=== PATIENT | male | born 1970 | race Caucasian/White ===

== ENCOUNTER 2016-10-04 08:59 | Emergency (ER) | payer OTHER ==
[~2016-10-04] VITALS: Ht 170.2 cm; Wt 119.9 kg
[~2016-10-04 08:59] MED LIST: ANUSOL HC,ANUCO25 MG PR; ANUSOL-HC21 GM PR; AZITHROMYCIN250 MG PO; BENTYL10 MG PO; CIPRO500 M1 PO; CIPRO500 MG PO; COUGH SYRU100 MG/5 M PO; DEPAKOTE250 MG PO; DEPAKOTE500 MG PO; FENOFIBRATE200 M1 PO; FENOGLIDE40 MG PO; FLAGYL500 MG PO; GEMFIBROZIL600 MG PO; GENTLE LAXATIVE5 M1 PO; GLUCOPHAGE500 MG PO; KEFLEX500 MG PO; LACTULOSE; LEVOFLOXACIN750 MG PO; LISINOPRIL-HCT1 EAC3 PO; LISINOPRIL20 MG PO; LORATADINE10 M2 PO; MEDROL DOSEPAK4 MG PO; METAMUCIL FIBE3.4 GM PO; METFORMIN HCL1000 MG PO; MOBIC7.5 MG PO; NIACIN 50 MG TA50 MG PO; NORCO 5/3251 TABLET PO; OMEPRAZOLE40 M1 PO; OXYCODONE HCL5 MG PO; OXYCODONE5 MG PO; PEPCID20 MG PO; PERCOCET 5/31 TABLET PO; PRINIVIL10 MG PO; PROBIOTIC & AC1 EACH PO; PROTONIX40 MG PO; PROVENTIL HFA6.7 GM IH; ROBITUSSIN100 MG/5 M PO; SENNA8.6 M1 PO; SIMVASTATIN20 M1 PO; SLO-NIACIN500 MG PO; TAMIFLU75 MG PO; TESSALON PERLE100 MG PO; TOPROL XL50 MG PO; TRAMADOL HCL50 MG PO; TUSSIN DM LIQU118 ML PO; TYLENOL REGULA325 MG PO; VIT D; ZITHROMAX Z-PA250 MG PO; ZOFRAN ODT4 MG PO; ZOFRAN4 MG PO
[2016-10-04 09:53] LABS: EOSINOPHIL COUNT 0.1 K/uL (0-0.3); HEMATOCRIT 42.7 % (38.0-50.0); IMMATURE GRANULOCYTE (%) 1.7 % (0.0-0.7); IMMATURE GRANULOCYTE COUNT 0.1 K/uL; INSTRUMENT ABS NEUTROPHIL CT 2.9 K/uL; LYMPHOCYTE COUNT 2.5 K/uL (1.0-2.8); MCHC 33.5 G/DL (30.0-36.0); MCV 101.4 FL (86-99); MEAN PLAT.VOLUME 9.9 uM^3 (9.0-12.4); MONOCYTE (%) 11.9 % (3-12); MONOCYTE COUNT 0.8 K/uL (0-0.8); NEUTROPHIL (%) 45.5 % (45-76); NEUTROPHIL COUNT 2.9 K/uL (1.8-6.4); NRBC (%) 0.3 /100 WBC (0-0); PLATELET COUNT 201 K/uL (156-360); RBC DIS.WIDTH-CV 14.4 % (11.8-14.6); RBC DIS.WIDTH-SD 53.8 % (39-53); RED BLOOD COUNT 4.21 M/uL (4.00-5.50); WHITE BLOOD COUNT 6.4 K/uL (4.1-10.2)
[2016-10-04 10:01] LABS: CHLORIDE 104 mEq/L (99-109); POTASSIUM 4.5 mEq/L (3.7-5.4); SODIUM 140 mEq/L (136-147)
[2016-10-04 10:03] LABS: GLUCOSE 219 mg/dL (70-99)
[2016-10-04 10:04] LABS: ANION GAP 12 MEQ/L (2-14)
[2016-10-04 10:07] LABS: GFR ESTIMATE (CALCULATED) > 59 mL/min/
[2016-10-04 10:08] LABS: UREA NITROGEN (BUN) 9 mg/dL (9-23)
[2016-10-04 10:09] LABS: URIC ACID 7.6 mg/dL (3.1-9.2)
[2016-10-04 13:04] VITALS: BP 150/95
== END 2016-10-04 13:05 | disposition home or self-care (01) ==
LOC: EME 08:59
PROVIDERS: Emergency Medicine
DX: M79.672 Pain in left foot (principal); E11.9 Type 2 diabetes mellitus without complications; Z79.84 Long term (current) use of oral hypoglycemic drugs; I10 Essential (primary) hypertension; G89.29 Other chronic pain; Z79.891 Long term (current) use of opiate analgesic; F17.200 Nicotine dependence, unspecified, uncomplicated
CPT/HCPCS: 73630; 80048; 84550; 85025; 99281; 99283

== ENCOUNTER 2016-11-03 09:36 | Inpatient (IN) | payer OTHER ==
[~2016-11-03] VITALS: Ht 170.2 cm; Wt 120.1 kg
[~2016-11-03 09:36] MED LIST changes: +ACTOS15 MG PO; +FISH OIL 1,001000 M2 PO; +LOSARTAN POTASS25 MG PO; +VITAMIN D32000 UNI1 PO
[2016-11-03 10:23] LABS: POINT-OF-CARE METER ID UU14174212
[2016-11-03 10:58] VITALS: BP 137/87
[2016-11-03 18:28] LABS: POINT-OF-CARE METER ID UU13113675; POINT-OF-CARE USER ID ADMKMM76
[2016-11-03 21:30] VITALS: BP 162/88
[2016-11-03 23:42] VITALS: BP 129/90
[2016-11-04] VITALS (7 sets, daily range): BP systolic 98–157; BP diastolic 48–80
[2016-11-05 15:44] VITALS: BP 128/78
[2016-11-05 21:00] VITALS: BP 132/78
[2016-11-05 21:14] LABS: EOSINOPHIL (%) 0.3 % (0-5); HEMATOCRIT 36.7 % (38.0-50.0); IMMATURE GRANULOCYTE (%) 0.8 % (0.0-0.7); IMMATURE GRANULOCYTE COUNT 0.1 K/uL; INSTRUMENT ABS NEUTROPHIL CT 5.6 K/uL; LYMPHOCYTE COUNT 0.8 K/uL (1.0-2.8); MCH 34.3 PG (29.0-34.0); MCHC 32.4 G/DL (30.0-36.0); MEAN PLAT.VOLUME 9.9 uM^3 (9.0-12.4); MONOCYTE (%) 13.8 % (3-12); NEUTROPHIL (%) 74.5 % (45-76); NEUTROPHIL COUNT 5.6 K/uL (1.8-6.4); PLATELET COUNT 166 K/uL (156-360); RBC DIS.WIDTH-CV 14.7 % (11.8-14.6); RBC DIS.WIDTH-SD 57.4 % (39-53); RED BLOOD COUNT 3.47 M/uL (4.00-5.50); WHITE BLOOD COUNT 7.5 K/uL (4.1-10.2)
[2016-11-05 21:24] LABS: ANION GAP 7 MEQ/L (2-14); CHLORIDE 104 MEQ/L (99-109); POTASSIUM 5.1 MEQ/L (3.7-5.4); SAMPLE HEMOLYSIS CHECK 0; SAMPLE ICTERIC CHECK 0; SAMPLE LIPEMIA CHECK 0; SODIUM 138 MEQ/L (136-147)
[2016-11-05 21:29] LABS: GFR ESTIMATE (CALCULATED) > 59 mL/min/; GLUCOSE 177 mg/dL (70-99); UREA NITROGEN (BUN) 13 mg/dL (9-23)
[2016-11-05 21:37] LABS: MCV 105.8 FL (86-99)
[2016-11-05 22:26] LABS: D-DIMER ELISA 0.86 mg/L FEU (< 0.57)
[2016-11-06 00:57] VITALS: BP 135/64
[2016-11-06 03:15] LABS: TOTAL BILIRUBIN 0.5 mg/dL (0.0-1.0)
[2016-11-06 03:16] LABS: ALKALINE PHOSPHATASE 33 IU/L (3-129)
[2016-11-06 03:18] LABS: DIRECT BILIRUBIN 0.3 mg/dL (0.0-0.3)
[2016-11-06 03:19] LABS: LIPASE 18 U/L (1.0-51.0)
[2016-11-06 03:25] LABS: TROP-I INTERPRETATION NEGATIVE; TROPONIN-I < 0.01 ng/mL (0.0-0.30)
[2016-11-06 04:09] VITALS: BP 151/71
[2016-11-06 07:09] VITALS: BP 133/72
[2016-11-06 15:23] VITALS: BP 130/71
[2016-11-06 19:43] VITALS: BP 136/74
[2016-11-06 23:33] VITALS: BP 149/89
[2016-11-07 03:44] VITALS: BP 157/75
[2016-11-07 07:01] LABS: ADD MIUA? YES; BILIRUBIN NEGATIVE; BLOOD SMALL; GLUCOSE (STRIP) 50; KETONES 5; LEUKOCYTES NEGATIVE; NITRITE NEGATIVE; PROTEIN (STRIP) NEGATIVE; SPECIFIC GRAVITY 1.008 (1.000-1.030)
[2016-11-07 07:11] LABS: COLOR YELLOW ((YELLOW))
[2016-11-07 07:13] LABS: BACTERIA NONE SEEN /HPF; EPITHELIAL CELLS NONE SEEN /HPF; MUCUS TRACE /LPF; RED BLOOD CELLS 0-5 /HPF (0-5); WHITE BLOOD CELLS 0-5 /HPF (0-5)
[2016-11-07 08:01] VITALS: BP 139/74
[2016-11-07 12:16] VITALS: BP 142/71
[2016-11-07] MEDS ORDERED: ENDOCET 5-3251 EACH PO ×2 (13:29→16:04)
[2016-11-07] MEDS ORDERED: CYCLOBENZAPRINE10 MG PO ×2 (13:29→16:04)
[2016-11-07] MEDS ORDERED: TAMSULOSIN HCL0.4 MG PO ×2 (13:29→16:04)
[2016-11-07] MEDS ORDERED: [UNRECOGNIZED DRUG - SUPPLY] MC (13:30)
[2016-11-07 16:09] VITALS: BP 148/78
== END 2016-11-07 18:00 | disposition home or self-care (01) | DRG 460 ==
LOC: 3EAST 09:36 → 2SOUTH 09:36 → EDSTATUS 13:49 → 2SOUTH 13:50 → SDC 15:42 → 2SOUTH 18:51 → 3EAST 21:05
PROVIDERS: Hospitalist; Neurological Surgery
DX: M43.06 Spondylolysis, lumbar region (principal); Z68.41 Body mass index [BMI] 40.0-44.9, adult; R33.9 Retention of urine, unspecified; G47.33 Obstructive sleep apnea (adult) (pediatric); E66.01 Morbid (severe) obesity due to excess calories; I10 Essential (primary) hypertension; E11.9 Type 2 diabetes mellitus without complications; E78.5 Hyperlipidemia, unspecified; G40.909 Epilepsy, unspecified, not intractable, without status epilepticus; R29.2 Abnormal reflex; R00.0 Tachycardia, unspecified; J45.909 Unspecified asthma, uncomplicated; M06.9 Rheumatoid arthritis, unspecified; E78.00 Pure hypercholesterolemia, unspecified; I25.10 Atherosclerotic heart disease of native coronary artery without angina pectoris; Z95.5 Presence of coronary angioplasty implant and graft; Z88.0 Allergy status to penicillin; Z99.89 Dependence on other enabling machines and devices; Z88.1 Allergy status to other antibiotic agents; Z87.11 Personal history of peptic ulcer disease; Z79.84 Long term (current) use of oral hypoglycemic drugs; Z88.6 Allergy status to analgesic agent; Z83.3 Family history of diabetes mellitus; Z82.3 Family history of stroke; Z82.49 Family history of ischemic heart disease and other diseases of the circulatory system
CPT/HCPCS: 71010; 71275; 72100; 76000; 80048; 80076; 81003; 82948; 83690; 83880; 84443; 84484; 85025; 85379; 86900; 86901; 93005; 93970; 94660; 94760; 94799; 95886; 95938; 97530 GP; C1713; G0378; J0131; J1100; J1170; J2250; J2405; J2550; J2765; J3010; J3480; J7030; J7040; Q0169; S0020

== ENCOUNTER 2016-11-09 14:30 | Emergency (ER) | payer OTHER ==
[~2016-11-09] VITALS: Ht 170.2 cm; Wt 120.0 kg
[~2016-11-09 14:30] MED LIST changes: +CYCLOBENZAPRINE10 MG PO; +ENDOCET 5-3251 EACH PO; +TAMSULOSIN HCL0.4 MG PO; +[UNRECOGNIZED DRUG - SUPPLY] MC
[2016-11-09] MEDS ORDERED: FLOMAX0.4 MG PO (14:59)
[2016-11-09 15:49] LABS: ADD MIUA? YES; BILIRUBIN NEGATIVE; BLOOD LARGE; COLOR YELLOW ((YELLOW)); GLUCOSE (STRIP) >=500; KETONES 5; LEUKOCYTES NEGATIVE; NITRITE NEGATIVE; PROTEIN (STRIP) 100; SPECIFIC GRAVITY 1.017 (1.000-1.030); UROBILINOGEN 0.2 MG/DL (0.2-1.0)
[2016-11-09 15:56] LABS: BACTERIA NONE SEEN /HPF; EPITHELIAL CELLS RARE /HPF; MUCUS TRACE /LPF; RED BLOOD CELLS TNTC /HPF (0-5); UCUL ADDED? NO; WHITE BLOOD CELLS 0-5 /HPF (0-5)
[2016-11-09 18:30] VITALS: BP 144/77
== END 2016-11-09 18:38 | disposition home or self-care (01) ==
LOC: EME 14:30
PROVIDERS: Physician Assistant Medical
DX: M54.9 Dorsalgia, unspecified (principal); R31.9 Hematuria, unspecified; R30.0 Dysuria; Z46.6 Encounter for fitting and adjustment of urinary device; Z98.890 Other specified postprocedural states; Z98.1 Arthrodesis status; E78.5 Hyperlipidemia, unspecified; G40.909 Epilepsy, unspecified, not intractable, without status epilepticus; Z88.6 Allergy status to analgesic agent; Z88.0 Allergy status to penicillin; Z87.891 Personal history of nicotine dependence
CPT/HCPCS: 81003; 99281; 99284

== ENCOUNTER 2017-01-01 13:49 | Inpatient (IN) | payer OTHER ==
[~2017-01-01] VITALS: Ht 170.2 cm; Wt 114.4 kg
[~2017-01-01 13:49] MED LIST changes: +FLOMAX0.4 MG PO
[2017-01-01 14:57] LABS: HEMATOCRIT 43.4 % (38.0-50.0); MCH 33.6 PG (29.0-34.0); MCHC 33.6 G/DL (30.0-36.0); MCV 99.8 FL (86-99); MEAN PLAT.VOLUME 10.6 uM^3 (9.0-12.4); PLATELET COUNT 169 K/uL (156-360); RBC DIS.WIDTH-CV 13.7 % (11.8-14.6); RBC DIS.WIDTH-SD 49.9 % (39-53); RED BLOOD COUNT 4.35 M/uL (4.00-5.50); WHITE BLOOD COUNT 3.4 K/uL (4.1-10.2)
[2017-01-01 15:08] LABS: CHLORIDE 106 mEq/L (99-109); POTASSIUM 4.5 mEq/L (3.7-5.4); SODIUM 140 mEq/L (136-147)
[2017-01-01 15:10] LABS: GLUCOSE 153 mg/dL (70-99)
[2017-01-01 15:11] LABS: ANION GAP 10 MEQ/L (2-14)
[2017-01-01 15:14] LABS: GFR ESTIMATE (CALCULATED) > 59 mL/min/; UREA NITROGEN (BUN) 7 mg/dL (9-23)
[2017-01-01 17:09] LABS: ADD MIUA? NO; BILIRUBIN NEGATIVE; BLOOD NEGATIVE; COLOR YELLOW ((YELLOW)); GLUCOSE (STRIP) 50; KETONES 5; LEUKOCYTES NEGATIVE; NITRITE NEGATIVE; PROTEIN (STRIP) NEGATIVE; SPECIFIC GRAVITY 1.011 (1.000-1.030); UCUL ADDED? NO; UROBILINOGEN 0.2 MG/DL (0.2-1.0)
[2017-01-01 18:34] LABS: SERUM ETHYL ALCOHOL < 10 mg/dL
[2017-01-01] MEDS ORDERED: OMEPRAZOLE40 M1 PO (19:13)
[2017-01-01] MEDS ORDERED: GEMFIBROZIL600 MG PO (19:13)
[2017-01-01] MEDS ORDERED: COZAAR25 MG PO (19:13)
[2017-01-01] MEDS ORDERED: ACTOS15 MG PO (19:13)
[2017-01-01] MEDS ORDERED: CLARITIN,ALAVAR10 MG PO (19:13)
[2017-01-01] MEDS ORDERED: FISH OIL 1,0001 EAC7 PO (19:13)
[2017-01-01] MEDS ORDERED: VITAMIN D32000 UNI1 PO (19:13)
[2017-01-01] MEDS ORDERED: DEPAKOTE250 MG PO (19:14)
[2017-01-01] MEDS ORDERED: GLUCOPHAGE500 MG PO (19:14)
[2017-01-01] MEDS ORDERED: DEPAKOTE500 MG PO (19:14)
[2017-01-01 19:53] LABS: AMPHETAMINE NEGATIVE (500 ng/mL); BARBITURATES NEGATIVE (200 ng/mL); BENZODIAZEPINES NEGATIVE (150 ng/mL); COCAINE NEGATIVE (150 ng/mL); INTERNAL CONTROLS VALID? YES; METHADONE NEGATIVE (200 ng/mL); METHAMPHETAMINE NEGATIVE (500 ng/mL); OPIATES (MORPHINE) NEGATIVE (100 ng/mL); OXYCODONE NEGATIVE (100 ng/mL); PHENCYCLIDINE NEGATIVE (25 ng/mL); PROPOXYPHENE NEGATIVE (300 ng/mL); THC CANNABINOIDS NEGATIVE (50 ng/mL); TRICYCLIC ANTIDEPRESSANTS PRESUMPTIVE POSITIVE (300 ng/mL)
[2017-01-01 20:23] LABS: POINT-OF-CARE METER ID UU14100415
[2017-01-01 22:10] LABS: BASE EXCESS -0.2 mEq/L (-3 to +3); BICARBONATE 24.8 mEq/L (22-26); CARBOXY HGB 1.4 % (0-5); METHEMOGLOBIN 0.6 % (0-1.5); PCO2 41 mm Hg (35-45); PO2 68 mm Hg (80-100); pH 7.39 (7.35-7.45)
[2017-01-01 22:11] LABS: COMMENTS - BLOOD GASES C+; DEVICE RA; MECHANICAL RATE 16 resp/min; SITE LR
[2017-01-01 22:55] LABS: TOTAL BILIRUBIN 0.4 mg/dL (0.0-1.0)
[2017-01-01 22:56] LABS: ALKALINE PHOSPHATASE 107 IU/L (3-129)
[2017-01-01 22:59] LABS: DIRECT BILIRUBIN 0.2 mg/dL (0.0-0.3)
[2017-01-01 23:46] VITALS: BP 141/73
[2017-01-01 23:59] LABS: POINT-OF-CARE METER ID UU14174225
[2017-01-02 02:00] LABS: HDL CHOLESTEROL 38 MG/DL (Desirable>=40); LDL CHOLESTEROL 116 mg/dL (Desirable<100); NON-HDL CHOLESTEROL 134 mg/dL (Desirable<160); TOTAL CHOLESTEROL 172 mg/dL (Desirable<200); TRIGLYCERIDES 89 MG/DL (Normal: <150)
[2017-01-02 03:48] VITALS: BP 158/85
[2017-01-02 06:42] LABS: HEMATOCRIT 40.9 % (38.0-50.0); MCH 34.6 PG (29.0-34.0); MCHC 33.7 G/DL (30.0-36.0); MCV 102.5 FL (86-99); MEAN PLAT.VOLUME 10.8 uM^3 (9.0-12.4); PLATELET COUNT 165 K/uL (156-360); RBC DIS.WIDTH-CV 14.3 % (11.8-14.6); RBC DIS.WIDTH-SD 53.8 % (39-53); RED BLOOD COUNT 3.99 M/uL (4.00-5.50); WHITE BLOOD COUNT 2.9 K/uL (4.1-10.2)
[2017-01-02 07:57] VITALS: BP 141/84
[2017-01-02 07:58] LABS: POINT-OF-CARE METER ID UU14188625
[2017-01-02 11:11] VITALS: BP 152/85
[2017-01-02 11:58] LABS: POINT-OF-CARE METER ID UU14188625
[2017-01-02 15:21] VITALS: BP 141/82
[2017-01-02 19:34] VITALS: BP 138/80
[2017-01-02 21:12] LABS: POINT-OF-CARE METER ID UU13113717
[2017-01-02 23:39] VITALS: BP 126/88
[2017-01-03 03:30] VITALS: BP 123/69
[2017-01-03 06:03] LABS: EOSINOPHIL (%) 2.4 % (0-5); EOSINOPHIL COUNT 0.1 K/uL (0-0.3); HEMATOCRIT 35.6 % (38.0-50.0); IMMATURE GRANULOCYTE (%) 0.8 % (0.0-0.7); INSTRUMENT ABS NEUTROPHIL CT 1.3 K/uL; LYMPHOCYTE COUNT 1.9 K/uL (1.0-2.8); MCH 34.9 PG (29.0-34.0); MCHC 34.3 G/DL (30.0-36.0); MCV 101.7 FL (86-99); MEAN PLAT.VOLUME 10.4 uM^3 (9.0-12.4); MONOCYTE (%) 13.1 % (3-12); MONOCYTE COUNT 0.5 K/uL (0-0.8); NEUTROPHIL (%) 32.9 % (45-76); NEUTROPHIL COUNT 1.3 K/uL (1.8-6.4); PLATELET COUNT 147 K/uL (156-360); RBC DIS.WIDTH-CV 14.1 % (11.8-14.6); RBC DIS.WIDTH-SD 52.6 % (39-53); WHITE BLOOD COUNT 3.8 K/uL (4.1-10.2)
[2017-01-03 06:31] LABS: ALKALINE PHOSPHATASE 85 IU/L (3-129); ANION GAP 8 MEQ/L (2-14); CHLORIDE 106 MEQ/L (99-109); GFR ESTIMATE (CALCULATED) > 59 mL/min/; GLUCOSE 163 mg/dL (70-99); POTASSIUM 4.1 MEQ/L (3.7-5.4); SAMPLE HEMOLYSIS CHECK 0; SAMPLE ICTERIC CHECK 0; SAMPLE LIPEMIA CHECK 0; SODIUM 140 MEQ/L (136-147); TOTAL BILIRUBIN 0.4 MG/DL (0.0-1.0); UREA NITROGEN (BUN) 15 mg/dL (9-23)
[2017-01-03 08:21] VITALS: BP 113/56
[2017-01-03 11:00] VITALS: BP 123/73
[2017-01-03 12:16] LABS: POINT-OF-CARE METER ID UU13113717
[2017-01-03] MEDS ORDERED: LEVETIRACETAM750 MG PO (15:21)
[2017-01-04 07:39] LABS: Estimated Average Glucose 126 mg/dL (70-123)
== END 2017-01-03 16:38 | disposition home or self-care (01) | DRG 71 ==
LOC: EME 13:49 → 5SOUTH 21:43 → EDOF 21:43 → ENRESERV 21:44 → 5SOUTH 23:22
PROVIDERS: Emergency Medicine; Hospitalist; Internal Medicine
DX: G93.41 Metabolic encephalopathy (principal); E72.20 Disorder of urea cycle metabolism, unspecified; R27.8 Other lack of coordination; E11.9 Type 2 diabetes mellitus without complications; E78.5 Hyperlipidemia, unspecified; I10 Essential (primary) hypertension; J45.909 Unspecified asthma, uncomplicated; G40.909 Epilepsy, unspecified, not intractable, without status epilepticus; G89.29 Other chronic pain; M54.9 Dorsalgia, unspecified; T42.6X5A Adverse effect of other antiepileptic and sedative-hypnotic drugs, initial encounter; E66.9 Obesity, unspecified; Z68.39 Body mass index [BMI] 39.0-39.9, adult; R53.1 Weakness; Z87.891 Personal history of nicotine dependence; R47.81 Slurred speech; Z79.899 Other long term (current) drug therapy; Z87.11 Personal history of peptic ulcer disease
CPT/HCPCS: 36600; 70450; 70551; 80048; 80053; 80061; 80076; 80164; 81003; 82140; 82803; 82948; 83036; 85025; 85027; 92523 GN; 93005; 93880; 99281; 99285; G0480; J1650; J1815; J7030

== ENCOUNTER 2017-02-11 18:06 | Emergency (ER) | payer OTHER ==
[~2017-02-11] VITALS: Ht 170.2 cm; Wt 113.0 kg
[~2017-02-11 18:06] MED LIST changes: +CLARITIN,ALAVAR10 MG PO; +COZAAR25 MG PO; +FISH OIL 1,0001 EAC7 PO; +LEVETIRACETAM750 MG PO
[2017-02-11 18:21] VITALS: BP 155/90
[2017-02-11] MEDS ORDERED: PEPCID20 MG PO (18:44)
[2017-02-11] MEDS ORDERED: BENADRYL25 MG PO (18:44)
== END 2017-02-11 19:32 | disposition home or self-care (01) ==
LOC: EME 18:06
DX: L25.9 Unspecified contact dermatitis, unspecified cause (principal); E11.9 Type 2 diabetes mellitus without complications; I10 Essential (primary) hypertension; E78.00 Pure hypercholesterolemia, unspecified; R56.9 Unspecified convulsions; Z88.0 Allergy status to penicillin; Z88.8 Allergy status to other drugs, medicaments and biological substances; Z79.84 Long term (current) use of oral hypoglycemic drugs
CPT/HCPCS: 99281; 99284

== ENCOUNTER 2017-04-29 12:48 | Emergency (ER) | payer OTHER ==
[~2017-04-29] VITALS: Ht 170.2 cm; Wt 108.7 kg
[~2017-04-29 12:48] MED LIST changes: +BENADRYL25 MG PO
[2017-04-29] MEDS ORDERED: ATARAX,VISTARIL25 MG PO (15:46)
[2017-04-29] MEDS ORDERED: MEDROL DOSEPAK4 MG PO (15:46)
[2017-04-29 16:00] VITALS: BP 124/80
== END 2017-04-29 16:11 | disposition home or self-care (01) ==
LOC: EME 12:48
DX: L24.0 Irritant contact dermatitis due to detergents (principal); Z88.5 Allergy status to narcotic agent; Z88.0 Allergy status to penicillin
CPT/HCPCS: 99281; 99283

== ENCOUNTER 2017-05-16 08:38 | Emergency (ER) | payer OTHER ==
[~2017-05-16] VITALS: Ht 170.2 cm; Wt 106.3 kg
[~2017-05-16 08:38] MED LIST changes: +ATARAX,VISTARIL25 MG PO
[2017-05-16] MEDS ORDERED: IMODIUM A-D2 M2 PO (12:15)
[2017-05-16] MEDS ORDERED: ZOFRAN4 MG PO (12:15)
[2017-05-16 13:13] VITALS: BP 138/85
== END 2017-05-16 13:14 | disposition home or self-care (01) ==
LOC: EME 08:38
PROVIDERS: Emergency Medicine
DX: R53.1 Weakness (principal); R19.7 Diarrhea, unspecified; R11.0 Nausea; I10 Essential (primary) hypertension; E11.9 Type 2 diabetes mellitus without complications; Z79.84 Long term (current) use of oral hypoglycemic drugs; Z86.73 Personal history of transient ischemic attack (TIA), and cerebral infarction without residual deficits; Z87.891 Personal history of nicotine dependence
CPT/HCPCS: 82948; 99281; 99283

== ENCOUNTER 2017-08-06 21:19 | Observation (INO) | payer OTHER ==
[~2017-08-06] VITALS: Ht 170.2 cm; Wt 110.8 kg
[~2017-08-06 21:19] MED LIST changes: +IMODIUM A-D2 M2 PO
[2017-08-06 22:33] LABS: HEMATOCRIT 38.6 % (38.0-50.0); MCH 31.8 PG (29.0-34.0); MCHC 33.7 G/DL (30.0-36.0); MCV 94.4 FL (86-99); PLATELET COUNT 245 K/uL (156-360); RBC DIS.WIDTH-SD 47.8 % (39-53); RED BLOOD COUNT 4.09 M/uL (4.00-5.50); WHITE BLOOD COUNT 5.4 K/uL (4.1-10.2)
[2017-08-06 22:45] LABS: CHLORIDE 105 mEq/L (99-109); SODIUM 139 mEq/L (136-147)
[2017-08-06 22:47] LABS: GLUCOSE 121 mg/dL (70-99)
[2017-08-06 22:51] LABS: CREATININE 0.9 mg/dL (0.6-1.3); GFR ESTIMATE (CALCULATED) > 59 mL/min/ (58.99-99999)
[2017-08-06 22:52] LABS: UREA NITROGEN (BUN) 9 mg/dL (9-23)
[2017-08-07] MEDS ORDERED: CETIRIZINE HCL10 M2 PO (00:26)
[2017-08-07] MEDS ORDERED: LOSARTAN POTASS25 MG PO (00:29)
[2017-08-07] MEDS ORDERED: PIOGLITAZONE HC15 MG PO (00:30)
[2017-08-07] MEDS ORDERED: METFORMIN HCL500 MG PO (00:31)
[2017-08-07] MEDS ORDERED: VENTOLIN HFA18 GM IH (00:32)
[2017-08-07] MEDS ORDERED: KEPPRA750 MG PO (00:35)
[2017-08-07] MEDS ORDERED: B-COMPLEX-VITA1 EACH PO (00:49)
[2017-08-07] MEDS ORDERED: ASCORBIC ACID100 MG PO (00:50)
[2017-08-07 00:53] VITALS: BP 136/62
[2017-08-07 00:54] LABS: HDL CHOLESTEROL 46 MG/DL (Desirable>=40); LDL CHOLESTEROL 85 mg/dL (Desirable<100); NON-HDL CHOLESTEROL 109 mg/dL (Desirable<160); TOTAL CHOLESTEROL 155 mg/dL (Desirable<200); TRIGLYCERIDES 120 MG/DL (Normal: <150)
[2017-08-07 03:22] VITALS: BP 127/68
[2017-08-07 07:31] VITALS: BP 116/65
[2017-08-07] MEDS ORDERED: BUTALB-APAP-CA1 EACH PO (10:49)
[2017-08-07 11:05] LABS: HEMOGLOBIN A1c (GLYCOHEMOGLOB) 5.9 % (Below 5.7)
[2017-08-07 11:15] LABS: APPEARANCE CLEAR ((CLEAR)); BILIRUBIN NEGATIVE; BLOOD NEGATIVE; COLOR YELLOW ((YELLOW)); GLUCOSE (STRIP) NEGATIVE; KETONES NEGATIVE; LEUKOCYTES NEGATIVE; NITRITE NEGATIVE; PROTEIN (STRIP) NEGATIVE; SPECIFIC GRAVITY 1.013 (1.000-1.030); UCUL ADDED? NO; UROBILINOGEN 0.2 MG/DL (0.2-1.0)
[2017-08-07 12:19] LABS: C DIFF TOXIN POSITIVE (NEGATIVE)
== END 2017-08-07 12:04 | disposition home or self-care (01) ==
LOC: EME → EDBD 21:19 → EME 21:19 → EDOF 23:50 → 5WEST 23:50 → ENRESERV 23:59 → 5WEST 08-07 00:45 → ENPENDDIS 08-07 10:54 → 5WEST 08-07 12:04
PROVIDERS: Emergency Medicine; Hospitalist; Physician Assistant
DX: G43.909 Migraine, unspecified, not intractable, without status migrainosus (principal); A04.72 Enterocolitis due to Clostridium difficile, not specified as recurrent; E11.9 Type 2 diabetes mellitus without complications; I10 Essential (primary) hypertension; E78.5 Hyperlipidemia, unspecified; J45.909 Unspecified asthma, uncomplicated; G40.909 Epilepsy, unspecified, not intractable, without status epilepticus; R11.0 Nausea; R42 Dizziness and giddiness; Z79.4 Long term (current) use of insulin; Z79.82 Long term (current) use of aspirin; Z82.49 Family history of ischemic heart disease and other diseases of the circulatory system; Z87.11 Personal history of peptic ulcer disease; Z88.0 Allergy status to penicillin; Z88.5 Allergy status to narcotic agent
CPT/HCPCS: 70450; 70551; 80048; 80061; 80164; 81003; 82140; 82948; 83036; 85027; 87493; 87506; 99281; 99285; G0378; J1200; J1650; J2765; J7030

== ENCOUNTER 2017-08-13 01:11 | Emergency (ER) | payer OTHER ==
[~2017-08-13] VITALS: Ht 170.2 cm; Wt 111.4 kg
[~2017-08-13 01:11] MED LIST changes: +ASCORBIC ACID100 MG PO; +B-COMPLEX-VITA1 EACH PO; +BUTALB-APAP-CA1 EACH PO; +CETIRIZINE HCL10 M2 PO; +KEPPRA750 MG PO; +METFORMIN HCL500 MG PO; +PIOGLITAZONE HC15 MG PO; +VENTOLIN HFA18 GM IH
[2017-08-13 02:11] LABS: HEMATOCRIT 39.2 % (38.0-50.0); HEMOGLOBIN 13.4 G/DL (12.5-16.6); MCH 32.1 PG (29.0-34.0); MCHC 34.2 G/DL (30.0-36.0); PLATELET COUNT 276 K/uL (156-360); RBC DIS.WIDTH-CV 13.9 % (11.8-14.6); RBC DIS.WIDTH-SD 47.6 % (39-53); RED BLOOD COUNT 4.17 M/uL (4.00-5.50); WHITE BLOOD COUNT 6.7 K/uL (4.1-10.2)
[2017-08-13 02:21] LABS: ALBUMIN 4.2 g/dL (3.2-4.8); CHLORIDE 105 mEq/L (99-109); POTASSIUM 3.8 mEq/L (3.7-5.4); SODIUM 139 mEq/L (136-147)
[2017-08-13 02:23] LABS: GLUCOSE 93 mg/dL (70-99); TOTAL PROTEIN 6.9 g/dL (6.4-8.3)
[2017-08-13 02:25] LABS: TOTAL BILIRUBIN 0.4 mg/dL (0.0-1.0)
[2017-08-13 02:27] LABS: ALKALINE PHOSPHATASE 57 IU/L (3-129); CREATININE 0.9 mg/dL (0.6-1.3); GFR ESTIMATE (CALCULATED) > 59 mL/min/ (58.99-99999)
[2017-08-13 02:28] LABS: UREA NITROGEN (BUN) 13 mg/dL (9-23)
[2017-08-13 02:29] LABS: AST (GOT) 21 IU/L (2-34)
[2017-08-13 02:30] LABS: ALT (GPT) 20 IU/L (3-49)
[2017-08-13 02:45] LABS: APPEARANCE CLEAR ((CLEAR)); BILIRUBIN NEGATIVE; BLOOD NEGATIVE; COLOR STRAW ((YELLOW)); GLUCOSE (STRIP) NEGATIVE; KETONES NEGATIVE; LEUKOCYTES NEGATIVE; NITRITE NEGATIVE; PROTEIN (STRIP) NEGATIVE; SPECIFIC GRAVITY 1.008 (1.000-1.030); UCUL ADDED? NO; UROBILINOGEN 0.2 MG/DL (0.2-1.0)
[2017-08-13] MEDS ORDERED: ZOFRAN ODT4 MG PO (03:50)
[2017-08-13 03:58] VITALS: BP 118/76
== END 2017-08-13 03:59 | disposition home or self-care (01) ==
LOC: EME 01:11
PROVIDERS: Physician Assistant
DX: A04.72 Enterocolitis due to Clostridium difficile, not specified as recurrent (principal); Z86.73 Personal history of transient ischemic attack (TIA), and cerebral infarction without residual deficits; I10 Essential (primary) hypertension; J45.909 Unspecified asthma, uncomplicated; E11.9 Type 2 diabetes mellitus without complications; Z79.84 Long term (current) use of oral hypoglycemic drugs; Z88.0 Allergy status to penicillin; Z87.891 Personal history of nicotine dependence
CPT/HCPCS: 80053; 81003; 85027; 87493; 99281; 99284

== ENCOUNTER 2017-08-27 18:21 | Emergency (ER) | payer OTHER ==
[~2017-08-27] VITALS: Ht 170.2 cm; Wt 111.7 kg
[2017-08-27 19:16] LABS: APPEARANCE CLEAR ((CLEAR)); BILIRUBIN NEGATIVE; BLOOD NEGATIVE; COLOR YELLOW ((YELLOW)); GLUCOSE (STRIP) NEGATIVE; KETONES NEGATIVE; LEUKOCYTES NEGATIVE; NITRITE NEGATIVE; PROTEIN (STRIP) NEGATIVE; SPECIFIC GRAVITY 1.025 (1.000-1.030); UCUL ADDED? NO; UROBILINOGEN 0.2 MG/DL (0.2-1.0)
[2017-08-27 19:17] LABS: HEMATOCRIT 39.9 % (38.0-50.0); HEMOGLOBIN 13.7 G/DL (12.5-16.6); MCH 32.5 PG (29.0-34.0); MCHC 34.3 G/DL (30.0-36.0); MCV 94.8 FL (86-99); PLATELET COUNT 260 K/uL (156-360); RBC DIS.WIDTH-CV 14.1 % (11.8-14.6); RBC DIS.WIDTH-SD 48.1 % (39-53); RED BLOOD COUNT 4.21 M/uL (4.00-5.50); WHITE BLOOD COUNT 11.1 K/uL (4.1-10.2)
[2017-08-27 19:26] LABS: ALBUMIN 4.4 g/dL (3.2-4.8); CHLORIDE 103 mEq/L (99-109); POTASSIUM 4.2 mEq/L (3.7-5.4); SODIUM 139 mEq/L (136-147)
[2017-08-27 19:28] LABS: GLUCOSE 103 mg/dL (70-99); TOTAL PROTEIN 7.2 g/dL (6.4-8.3)
[2017-08-27 19:30] LABS: TOTAL BILIRUBIN 0.4 mg/dL (0.0-1.0)
[2017-08-27 19:32] LABS: ALKALINE PHOSPHATASE 64 IU/L (3-129); CREATININE 1.1 mg/dL (0.6-1.3); GFR ESTIMATE (CALCULATED) > 59 mL/min/ (58.99-99999)
[2017-08-27 19:33] LABS: UREA NITROGEN (BUN) 10 mg/dL (9-23)
[2017-08-27 19:34] LABS: AST (GOT) 17 IU/L (2-34)
[2017-08-27 19:35] LABS: ALT (GPT) 19 IU/L (3-49); LIPASE 71 U/L (1.0-51.0)
[2017-08-27 21:00] VITALS: BP 152/90
[2017-08-27] MEDS ORDERED: FLAGYL500 MG PO (21:15)
[2017-08-27] MEDS ORDERED: CIPRO500 MG PO (21:15)
[2017-08-27] MEDS ORDERED: NORCO 5/3251 TABLET PO (21:15)
== END 2017-08-27 21:43 | disposition home or self-care (01) ==
LOC: EME 18:21
DX: K57.32 Diverticulitis of large intestine without perforation or abscess without bleeding (principal); I10 Essential (primary) hypertension; E78.5 Hyperlipidemia, unspecified; J45.909 Unspecified asthma, uncomplicated; K21.9 Gastro-esophageal reflux disease without esophagitis; G43.909 Migraine, unspecified, not intractable, without status migrainosus; R56.9 Unspecified convulsions; Z79.84 Long term (current) use of oral hypoglycemic drugs; Z79.51 Long term (current) use of inhaled steroids; Z86.73 Personal history of transient ischemic attack (TIA), and cerebral infarction without residual deficits; Z87.19 Personal history of other diseases of the digestive system; Z87.891 Personal history of nicotine dependence; Z88.5 Allergy status to narcotic agent; Z88.0 Allergy status to penicillin; Z88.1 Allergy status to other antibiotic agents; Z88.6 Allergy status to analgesic agent
CPT/HCPCS: 74177; 80053; 81003; 83690; 85027; 99281; 99285; J3010; J7040

== ENCOUNTER 2017-08-31 21:59 | Emergency (ER) | payer OTHER ==
[~2017-08-31] VITALS: Ht 170.2 cm; Wt 112.7 kg
[2017-08-31 22:35] LABS: HEMATOCRIT 40.4 % (38.0-50.0); HEMOGLOBIN 13.6 G/DL (12.5-16.6); MCHC 33.7 G/DL (30.0-36.0); MCV 95.1 FL (86-99); PLATELET COUNT 285 K/uL (156-360); RBC DIS.WIDTH-CV 13.9 % (11.8-14.6); RBC DIS.WIDTH-SD 48.6 % (39-53); RED BLOOD COUNT 4.25 M/uL (4.00-5.50); WHITE BLOOD COUNT 5.3 K/uL (4.1-10.2)
[2017-08-31 22:43] LABS: ALBUMIN 4.2 g/dL (3.2-4.8); CHLORIDE 106 mEq/L (99-109); POTASSIUM 4.4 mEq/L (3.7-5.4); SODIUM 144 mEq/L (136-147)
[2017-08-31 22:45] LABS: GLUCOSE 139 mg/dL (70-99)
[2017-08-31 22:46] LABS: TOTAL PROTEIN 6.6 g/dL (6.4-8.3)
[2017-08-31 22:49] LABS: ALKALINE PHOSPHATASE 62 IU/L (3-129); CREATININE 0.9 mg/dL (0.6-1.3); GFR ESTIMATE (CALCULATED) > 59 mL/min/ (58.99-99999)
[2017-08-31 22:50] LABS: UREA NITROGEN (BUN) 12 mg/dL (9-23)
[2017-08-31 22:51] LABS: AST (GOT) 20 IU/L (2-34)
[2017-08-31 22:52] LABS: ALT (GPT) 24 IU/L (3-49)
[2017-08-31 22:53] LABS: LIPASE 59 U/L (1.0-51.0)
[2017-08-31 22:54] LABS: TOTAL BILIRUBIN 0.2 mg/dL (0.0-1.0)
[2017-09-01 01:22] VITALS: BP 154/89
[2017-09-01 02:32] LABS: C DIFF TOXIN POSITIVE (NEGATIVE)
[2017-09-02] MEDS ORDERED: KEPPRA1000 MG PO (02:15)
== END 2017-09-01 01:22 | disposition home or self-care (01) ==
LOC: EME 21:59
PROVIDERS: Physician Assistant
DX: R19.7 Diarrhea, unspecified (principal); R11.0 Nausea; E11.9 Type 2 diabetes mellitus without complications; I10 Essential (primary) hypertension; E78.5 Hyperlipidemia, unspecified; K21.9 Gastro-esophageal reflux disease without esophagitis; J45.909 Unspecified asthma, uncomplicated; Z79.84 Long term (current) use of oral hypoglycemic drugs; Z87.891 Personal history of nicotine dependence; Z87.19 Personal history of other diseases of the digestive system; Z86.73 Personal history of transient ischemic attack (TIA), and cerebral infarction without residual deficits; Z88.5 Allergy status to narcotic agent; Z88.0 Allergy status to penicillin; Z88.6 Allergy status to analgesic agent; Z88.1 Allergy status to other antibiotic agents
CPT/HCPCS: 80053; 81003; 83690; 85027; 87493; 99281; 99283

== ENCOUNTER 2017-09-01 22:43 | Emergency (ER) | payer OTHER ==
[~2017-09-01] VITALS: Ht 170.2 cm; Wt 109.0 kg
[2017-09-01 23:16] LABS: HEMATOCRIT 39.9 % (38.0-50.0); HEMOGLOBIN 13.4 G/DL (12.5-16.6); MCH 31.8 PG (29.0-34.0); MCHC 33.6 G/DL (30.0-36.0); MCV 94.5 FL (86-99); PLATELET COUNT 280 K/uL (156-360); RBC DIS.WIDTH-CV 14.1 % (11.8-14.6); RBC DIS.WIDTH-SD 48.5 % (39-53); RED BLOOD COUNT 4.22 M/uL (4.00-5.50); WHITE BLOOD COUNT 6.7 K/uL (4.1-10.2)
[2017-09-01 23:29] LABS: ALBUMIN 4.1 g/dL (3.2-4.8); CHLORIDE 106 mEq/L (99-109); SODIUM 141 mEq/L (136-147)
[2017-09-01 23:32] LABS: GLUCOSE 132 mg/dL (70-99); TOTAL PROTEIN 6.8 g/dL (6.4-8.3)
[2017-09-01 23:35] LABS: ALKALINE PHOSPHATASE 59 IU/L (3-129); GFR ESTIMATE (CALCULATED) > 59 mL/min/ (58.99-99999)
[2017-09-01 23:36] LABS: UREA NITROGEN (BUN) 9 mg/dL (9-23)
[2017-09-01 23:37] LABS: AST (GOT) 22 IU/L (2-34)
[2017-09-01 23:38] LABS: ALT (GPT) 24 IU/L (3-49); CREATINE KINASE 125 IU/L (1-294); TOTAL CK 125 IU/L (1-294)
[2017-09-01 23:39] LABS: POTASSIUM 3.3 mEq/L (3.7-5.4); TOTAL BILIRUBIN 0.3 mg/dL (0.0-1.0)
[2017-09-01 23:46] LABS: CK-MB 1.8 ng/mL (0.0-4.9); CKMB RELATIVE INDEX 1.4 (0.0-3.9)
[2017-09-02 00:36] LABS: TROP-I INTERPRETATION NEGATIVE; TROPONIN-I < 0.01 ng/mL (0.0-0.30)
[2017-09-02] MEDS ORDERED: KEPPRA1000 MG PO (02:15)
[2017-09-02 02:27] VITALS: BP 123/103
== END 2017-09-02 02:28 | disposition home or self-care (01) ==
LOC: EME → EDBD 22:43 → EME 22:43
PROVIDERS: Emergency Medicine
DX: G40.909 Epilepsy, unspecified, not intractable, without status epilepticus (principal); A04.72 Enterocolitis due to Clostridium difficile, not specified as recurrent; I10 Essential (primary) hypertension; K21.9 Gastro-esophageal reflux disease without esophagitis; E78.5 Hyperlipidemia, unspecified; J45.909 Unspecified asthma, uncomplicated; Z87.19 Personal history of other diseases of the digestive system; Z86.73 Personal history of transient ischemic attack (TIA), and cerebral infarction without residual deficits; Z87.891 Personal history of nicotine dependence; Z88.5 Allergy status to narcotic agent; Z88.0 Allergy status to penicillin; Z88.1 Allergy status to other antibiotic agents
CPT/HCPCS: 71045; 80053; 82550; 82553; 84484; 85027; 93005; 99281; 99284; J1953; J7030; J7050

== ENCOUNTER 2017-09-18 10:41 | Emergency (ER) | payer OTHER ==
[~2017-09-18] VITALS: Ht 170.2 cm; Wt 109.3 kg
[~2017-09-18 10:41] MED LIST changes: +KEPPRA1000 MG PO
[2017-09-18 11:31] LABS: BASOPHIL (%) 0.9 % (0-1); BASOPHIL COUNT 0.1 K/uL (0-0.1); EOSINOPHIL (%) 2.6 % (0-5); EOSINOPHIL COUNT 0.2 K/uL (0-0.3); HEMATOCRIT 40.5 % (38.0-50.0); HEMOGLOBIN 13.6 G/DL (12.5-16.6); IMMATURE GRANULOCYTE (%) 0.5 % (0.0-0.7); LYMPHOCYTE (%) 27.9 % (15-42); LYMPHOCYTE COUNT 1.6 K/uL (1.0-2.8); MCH 31.6 PG (29.0-34.0); MCHC 33.6 G/DL (30.0-36.0); MCV 94.2 FL (86-99); MONOCYTE (%) 7.8 % (3-12); MONOCYTE COUNT 0.5 K/uL (0-0.8); NEUTROPHIL (%) 60.3 % (45-76); NEUTROPHIL COUNT 3.5 K/uL (1.8-6.4); PLATELET COUNT 211 K/uL (156-360); RBC DIS.WIDTH-CV 14.2 % (11.8-14.6); RBC DIS.WIDTH-SD 48.6 % (39-53); WHITE BLOOD COUNT 5.8 K/uL (4.1-10.2)
[2017-09-18 12:03] LABS: CHLORIDE 103 MEQ/L (99-109); POTASSIUM 3.9 MEQ/L (3.7-5.4); SODIUM 138 MEQ/L (136-147)
[2017-09-18 12:08] LABS: CREATININE 0.8 MG/DL (0.6-1.3); GFR ESTIMATE (CALCULATED) > 59 mL/min/ (58.99-99999); GLUCOSE 140 mg/dL (70-99); UREA NITROGEN (BUN) 9 mg/dL (9-23)
[2017-09-18 15:10] VITALS: BP 131/90
== END 2017-09-18 15:16 | disposition home or self-care (01) ==
LOC: EME 10:41
PROVIDERS: Emergency Medicine
DX: G40.909 Epilepsy, unspecified, not intractable, without status epilepticus (principal); K21.9 Gastro-esophageal reflux disease without esophagitis; J45.909 Unspecified asthma, uncomplicated; E78.5 Hyperlipidemia, unspecified; I10 Essential (primary) hypertension; Z86.73 Personal history of transient ischemic attack (TIA), and cerebral infarction without residual deficits; E11.9 Type 2 diabetes mellitus without complications; Z79.84 Long term (current) use of oral hypoglycemic drugs; Z88.0 Allergy status to penicillin; Z88.5 Allergy status to narcotic agent; Z87.891 Personal history of nicotine dependence
CPT/HCPCS: 80048; 85025; 93005; 99281; 99285

== ENCOUNTER 2017-11-17 23:28 | Emergency (ER) | payer OTHER ==
[~2017-11-17] VITALS: Ht 170.2 cm; Wt 113.0 kg
[2017-11-18 00:34] LABS: HEMOGLOBIN 13.9 G/DL (12.5-16.6); MCHC 34.8 G/DL (30.0-36.0); MCV 92.2 FL (86-99); PLATELET COUNT 256 K/uL (156-360); RBC DIS.WIDTH-CV 14.6 % (11.8-14.6); RBC DIS.WIDTH-SD 49.1 % (39-53); RED BLOOD COUNT 4.34 M/uL (4.00-5.50); WHITE BLOOD COUNT 11.6 K/uL (4.1-10.2)
[2017-11-18 00:43] LABS: CHLORIDE 106 mEq/L (99-109); POTASSIUM 3.6 mEq/L (3.7-5.4); SODIUM 142 mEq/L (136-147)
[2017-11-18 00:44] LABS: GLUCOSE 148 mg/dL (70-99)
[2017-11-18 00:48] LABS: GFR ESTIMATE (CALCULATED) > 59 mL/min/ (58.99-99999)
[2017-11-18 00:49] LABS: UREA NITROGEN (BUN) 12 mg/dL (9-23)
[2017-11-18 00:55] LABS: TROP-I INTERPRETATION NEGATIVE; TROPONIN-I < 0.01 ng/mL (0.0-0.30)
[2017-11-18 01:44] VITALS: BP 137/86
== END 2017-11-18 01:45 | disposition home or self-care (01) ==
LOC: EME → EDBD 23:28 → EME 23:28
PROVIDERS: Emergency Medicine
DX: E86.0 Dehydration (principal); I10 Essential (primary) hypertension; J45.909 Unspecified asthma, uncomplicated; K21.9 Gastro-esophageal reflux disease without esophagitis; I45.10 Unspecified right bundle-branch block; G40.909 Epilepsy, unspecified, not intractable, without status epilepticus; Z79.899 Other long term (current) drug therapy; Z86.73 Personal history of transient ischemic attack (TIA), and cerebral infarction without residual deficits; Z88.0 Allergy status to penicillin; Z88.5 Allergy status to narcotic agent; Z87.891 Personal history of nicotine dependence
CPT/HCPCS: 71045; 80048; 83880; 84484; 85027; 93005; 99281; 99283

== ENCOUNTER 2017-12-10 14:15 | Emergency (ER) | payer OTHER ==
[~2017-12-10] VITALS: Ht 170.2 cm; Wt 113.9 kg
[2017-12-10 15:09] LABS: HEMATOCRIT 38.6 % (38.0-50.0); HEMOGLOBIN 13.4 G/DL (12.5-16.6); MCH 31.9 PG (29.0-34.0); MCHC 34.7 G/DL (30.0-36.0); MCV 91.9 FL (86-99); PLATELET COUNT 259 K/uL (156-360); RBC DIS.WIDTH-CV 14.6 % (11.8-14.6); RBC DIS.WIDTH-SD 48.7 % (39-53); WHITE BLOOD COUNT 8.5 K/uL (4.1-10.2)
[2017-12-10 15:14] LABS: ALBUMIN 4.3 g/dL (3.2-4.8); CHLORIDE 104 mEq/L (99-109); POTASSIUM 3.9 mEq/L (3.7-5.4); SODIUM 140 mEq/L (136-147)
[2017-12-10 15:17] LABS: GLUCOSE 106 mg/dL (70-99); TOTAL PROTEIN 7.1 g/dL (6.4-8.3)
[2017-12-10 15:19] LABS: TOTAL BILIRUBIN 0.6 mg/dL (0.0-1.0)
[2017-12-10 15:20] LABS: ALKALINE PHOSPHATASE 72 IU/L (3-129); CREATININE 0.9 mg/dL (0.6-1.3); GFR ESTIMATE (CALCULATED) > 59 mL/min/ (58.99-99999)
[2017-12-10 15:21] LABS: UREA NITROGEN (BUN) 7 mg/dL (9-23)
[2017-12-10 15:22] LABS: AST (GOT) 21 IU/L (2-34)
[2017-12-10 15:23] LABS: ALT (GPT) 27 IU/L (3-49)
[2017-12-10 15:48] LABS: APPEARANCE CLEAR ((CLEAR)); BILIRUBIN NEGATIVE; BLOOD NEGATIVE; COLOR YELLOW ((YELLOW)); GLUCOSE (STRIP) NEGATIVE; KETONES NEGATIVE; LEUKOCYTES NEGATIVE; NITRITE NEGATIVE; PROTEIN (STRIP) NEGATIVE; SPECIFIC GRAVITY 1.008 (1.000-1.030); UCUL ADDED? NO; UROBILINOGEN 0.2 MG/DL (0.2-1.0)
[2017-12-10] MEDS ORDERED: FLAGYL500 MG PO (17:33)
[2017-12-10] MEDS ORDERED: CIPRO500 MG PO (17:33)
[2017-12-10] MEDS ORDERED: AVELOX400 MG PO (17:54)
[2017-12-10 18:10] VITALS: BP 155/90
== END 2017-12-10 18:10 | disposition home or self-care (01) ==
LOC: EME 14:15
DX: K57.32 Diverticulitis of large intestine without perforation or abscess without bleeding (principal); I10 Essential (primary) hypertension; E78.5 Hyperlipidemia, unspecified; J45.909 Unspecified asthma, uncomplicated; E11.9 Type 2 diabetes mellitus without complications; Z79.84 Long term (current) use of oral hypoglycemic drugs; Z86.73 Personal history of transient ischemic attack (TIA), and cerebral infarction without residual deficits; Z88.0 Allergy status to penicillin; Z87.891 Personal history of nicotine dependence
CPT/HCPCS: 74177; 80053; 81003; 85027; 99281; 99285; J2270; J7030

== ENCOUNTER 2017-12-13 22:28 | Emergency (ER) | payer OTHER ==
[~2017-12-13] VITALS: Ht 170.2 cm; Wt 113.6 kg
[~2017-12-13 22:28] MED LIST changes: +AVELOX400 MG PO
[2017-12-14] MEDS ORDERED: ROBAXIN750 MG PO (00:31)
[2017-12-14 00:43] VITALS: BP 134/94
== END 2017-12-14 00:43 | disposition home or self-care (01) ==
LOC: EME 22:28
DX: M54.5 Low back pain (principal); G89.29 Other chronic pain; Z88.0 Allergy status to penicillin; Z88.5 Allergy status to narcotic agent; Z88.1 Allergy status to other antibiotic agents
CPT/HCPCS: 72100; 99281; 99283; J3010

== ENCOUNTER 2017-12-28 00:07 | Emergency (ER) | payer OTHER ==
[~2017-12-28] VITALS: Ht 170.2 cm; Wt 112.0 kg
[~2017-12-28 00:07] MED LIST changes: +ROBAXIN750 MG PO
[2017-12-28 02:42] LABS: ALBUMIN 4.7 g/dL (3.2-4.8); CHLORIDE 102 mEq/L (99-109); POTASSIUM 3.5 mEq/L (3.7-5.4); SODIUM 140 mEq/L (136-147)
[2017-12-28 02:44] LABS: GLUCOSE 117 mg/dL (70-99)
[2017-12-28 02:46] LABS: TOTAL BILIRUBIN 0.7 mg/dL (0.0-1.0)
[2017-12-28 02:48] LABS: ALKALINE PHOSPHATASE 80 IU/L (3-129); GFR ESTIMATE (CALCULATED) > 59 mL/min/ (58.99-99999)
[2017-12-28 02:49] LABS: BASOPHIL COUNT 0.1 K/uL (0-0.1); EOSINOPHIL (%) 2.5 % (0-5); EOSINOPHIL COUNT 0.2 K/uL (0-0.3); HEMATOCRIT 44.1 % (38.0-50.0); HEMOGLOBIN 14.9 G/DL (12.5-16.6); IMMATURE GRANULOCYTE (%) 0.3 % (0.0-0.7); LYMPHOCYTE (%) 35.6 % (15-42); LYMPHOCYTE COUNT 3.2 K/uL (1.0-2.8); MCH 31.5 PG (29.0-34.0); MCHC 33.8 G/DL (30.0-36.0); MCV 93.2 FL (86-99); MONOCYTE (%) 11.4 % (3-12); NEUTROPHIL (%) 49.2 % (45-76); NEUTROPHIL COUNT 4.4 K/uL (1.8-6.4); PLATELET COUNT 233 K/uL (156-360); RBC DIS.WIDTH-CV 14.2 % (11.8-14.6); RBC DIS.WIDTH-SD 48.5 % (39-53); RED BLOOD COUNT 4.73 M/uL (4.00-5.50); UREA NITROGEN (BUN) 8 mg/dL (9-23)
[2017-12-28 02:50] LABS: AST (GOT) 45 IU/L (2-34)
[2017-12-28 02:51] LABS: ALT (GPT) 53 IU/L (3-49)
[2017-12-28 03:31] LABS: C DIFF TOXIN POSITIVE (NEGATIVE)
[2017-12-28] MEDS ORDERED: ZOFRAN4 MG PO (04:13)
[2017-12-28] MEDS ORDERED: VANCOCIN HCL125 MG PO (04:13)
[2017-12-28 04:19] VITALS: BP 129/93
== END 2017-12-28 04:20 | disposition home or self-care (01) ==
LOC: EME 00:07
PROVIDERS: Emergency Medicine
DX: A04.72 Enterocolitis due to Clostridium difficile, not specified as recurrent (principal); E11.9 Type 2 diabetes mellitus without complications; E78.5 Hyperlipidemia, unspecified; I10 Essential (primary) hypertension; J45.909 Unspecified asthma, uncomplicated; G40.909 Epilepsy, unspecified, not intractable, without status epilepticus; K21.9 Gastro-esophageal reflux disease without esophagitis; Z86.73 Personal history of transient ischemic attack (TIA), and cerebral infarction without residual deficits; Z79.84 Long term (current) use of oral hypoglycemic drugs; Z88.5 Allergy status to narcotic agent; Z88.0 Allergy status to penicillin; Z88.6 Allergy status to analgesic agent
CPT/HCPCS: 80053; 85025; 87493; 99281; 99284